=== PATIENT | male | born 1945 | race Caucasian/White ===

== ENCOUNTER → 2019-11-13 | Outpatient (CLI) | payer OTHER ==
[~2019-11-13] MED LIST: ASPIRIN325; ATORVASTATIN CA40 MG; BENICAR40 MG; CARVEDILOL25 MG; FISH OIL 1,2001 EAC4; GARLIC1000 MG; GLUCOPHAGE XR500 MG; VITAMIN C500 M1
== END ==
LOC: SJCVC 14:17
DX: I25.10 Atherosclerotic heart disease of native coronary artery without angina pectoris (principal); I65.23 Occlusion and stenosis of bilateral carotid arteries; I10 Essential (primary) hypertension; E78.00 Pure hypercholesterolemia, unspecified; E11.9 Type 2 diabetes mellitus without complications; I73.9 Peripheral vascular disease, unspecified; Z79.4 Long term (current) use of insulin; Z79.899 Other long term (current) drug therapy; Z87.891 Personal history of nicotine dependence

== ENCOUNTER → 2019-12-02 | Outpatient (CLI) | payer OTHER | LOC: SJCVCIMAG 07:38 | PROVIDERS: ATTEND Internal Medicine Cardiovascular Disease | DX: R94.31 Abnormal electrocardiogram [ECG] [EKG] (principal); I08.3 Combined rheumatic disorders of mitral, aortic and tricuspid valves; I25.10 Atherosclerotic heart disease of native coronary artery without angina pectoris; I10 Essential (primary) hypertension; E11.9 Type 2 diabetes mellitus without complications; E78.00 Pure hypercholesterolemia, unspecified; E78.5 Hyperlipidemia, unspecified; Z79.4 Long term (current) use of insulin; Z79.82 Long term (current) use of aspirin; Z79.899 Other long term (current) drug therapy ==

== ENCOUNTER → 2020-09-16 | Outpatient (CLI) | payer OTHER | LOC: SJCVC 11:40 | PROVIDERS: ATTEND Internal Medicine Cardiovascular Disease | DX: I25.10 Atherosclerotic heart disease of native coronary artery without angina pectoris (principal); I10 Essential (primary) hypertension; E78.00 Pure hypercholesterolemia, unspecified; I65.23 Occlusion and stenosis of bilateral carotid arteries; E11.9 Type 2 diabetes mellitus without complications; E78.5 Hyperlipidemia, unspecified; Z79.84 Long term (current) use of oral hypoglycemic drugs; Z79.82 Long term (current) use of aspirin; Z79.899 Other long term (current) drug therapy; Z87.891 Personal history of nicotine dependence; Z98.890 Other specified postprocedural states ==

== ENCOUNTER → 2021-05-20 | Outpatient (CLI) | payer OTHER ==
[2021-05-20 14:21] LABS: CREATININE 0.8 mg/dL (0.7-1.3)
== END ==
LOC: MRI 11:48
PROVIDERS: ATTEND Nurse Practitioner
DX: S32.038A Other fracture of third lumbar vertebra, initial encounter for closed fracture (principal); M54.5 Low back pain; M47.816 Spondylosis without myelopathy or radiculopathy, lumbar region; M48.061 Spinal stenosis, lumbar region without neurogenic claudication; X58.XXXA Exposure to other specified factors, initial encounter; Y93.89 Activity, other specified; Y92.89 Other specified places as the place of occurrence of the external cause; Y99.8 Other external cause status

== ENCOUNTER → 2021-06-01 | Outpatient (CLI) | payer OTHER | LOC: SJCVC 13:24 | PROVIDERS: ATTEND Nuclear Medicine Nuclear Cardiology | DX: M80.08XA Age-related osteoporosis with current pathological fracture, vertebra(e), initial encounter for fracture (principal); M54.50 Low back pain, unspecified; E78.00 Pure hypercholesterolemia, unspecified; I25.10 Atherosclerotic heart disease of native coronary artery without angina pectoris; I77.9 Disorder of arteries and arterioles, unspecified; E11.9 Type 2 diabetes mellitus without complications; I10 Essential (primary) hypertension; Z79.4 Long term (current) use of insulin; Z79.899 Other long term (current) drug therapy; Z87.891 Personal history of nicotine dependence; Z79.82 Long term (current) use of aspirin; X58.XXXA Exposure to other specified factors, initial encounter ==

== ENCOUNTER → 2021-06-15 | Outpatient (CLI) | payer OTHER ==
[~2021-06-15] VITALS: Ht 175.3 cm; Wt 77.1 kg
[~2021-06-15] MED LIST changes: +ADULT ASPIRIN R81 MG PO; +CARVEDILOL12.5 MG PO; +CITALOPRAM HBR40 MG PO; +FISH OIL 1,0001 EAC9 PO; +LIPITOR40 MG PO; +METFORMIN HCL500 M3 PO; +PRINIVIL20 M1 PO; +VITAMIN D325 MC5 PO
[2021-06-15 09:26] VITALS: BP 109/58
--- NOTE | 2021-06-15 09:58 | NUR ---
Pain Clinic Assessment: 1. History of Osteoarthritis: Right Lower Extremity History of Rheumatoid Arthritis: Not Applicable 2. Height: 5 ft. 9 in. 175.3 cm. Weight: 170.0 lb. oz. 77.112 kg. Patient's BMI: 25.1 3. Vital Signs: BP: 109/58 Pulse: 53 Resp: 14 Temp: 02 Sat: 97 ECG Mon: 4. Pain Intensity: 9 5. Fall Risk: Dizziness: N Needs help standing or walking: N Fallen in the last 3 months: N Fall risk comments: 6. Patient on Blood Thinner: None 7. History of Hypertension: Y 8. Opioid Therapy greater than 6 weeks: N Opiate Contract Signed: 9. Risk Assessment Tool Provided: LOW 10. Functional Assessment Tool: 43/ 11. Recreational Drug Use: Never Drug Type: Tobacco Use: Never Smoker Tobacco Type: Amount or Packs/day: How Many Years: Alcohol Use: No Frequency: Quant:
--- NOTE | 2021-06-22 09:03 | HPC ---
[place] [address] PAIN MANAGEMENT CONSULTATION Name: BRYAN HERNANDEZ Room #: [facility] Fernie#: [id number] Admission: 06/15/21 Attend Phys: Chip Ponce DO Discharge: Date of : 43 Report #: [id number] THIS REPORT FOR: cc: Cooper Mccurdy,Chip Alejandra DO ~ cc: Cooper Mccurdy MD DATE OF SERVICE: 06/15/2021 REFERRING PHYSICIAN: Dr. Cooper Mccurdy. CHIEF COMPLAINT: Low back pain, right lower extremity pain with paresthesias. HISTORY OF PRESENT ILLNESS: As you know, the patient is a very pleasant 75-year-old male, reporting acute onset of low back pain, right lower extremity pain with paresthesias. He states pain intensified 05/16/2021. He reports that he felt out of a truck on to his back in August 2019 and sustained a second fall in March 2021. He believes this March 2021 fall as what led to exacerbation of symptoms in April. The patient has trialed conservative treatment options including [id number]-knkszbe medications, rest, relaxation without much in the way of improvement in symptoms. He contacted his primary care physician who started the patient on medication management and gave stretching exercises and treatment from a conservative standpoint. When these symptoms did not improve, the patient was then sent on for MRI of the lumbar spine that MRI showed a compression fracture at L3 with central marrow edema and enhancement suggesting subacute fracture. He was advised to look towards treatment options. The patient did not seek treatment for this even after the imaging was completed. He was referred on to our clinic to discuss interventional therapies. The patient reports today his pain is continuous, steady and constant. He describes pain as shooting, aching and stabbing. Places current pain score 9/10. Worst pain has been as 10/10. The patient states pain is exacerbated with movement, improves with lying down. He has been referred to our service to discuss treatment options for low back pain and right lower extremity pain with paresthesias with a previous subacute compression fracture at L3. PAST MEDICAL HISTORY: 1. Diabetes mellitus type 2. 2. Hypertension. 3. COPD. 4. Coronary artery disease. 5. Degenerative joint disease. 6. Osteoarthritis. 7. Hyperlipidemia. 8. History of myocardial infarction. [address] [address] PAIN MANAGEMENT CONSULTATION Name: MARYBRYANRAJESH MEDEIROS Room #: REG [facility]EN[facility] Enciso#: [id number] Admission: 06/15/21 Attend Phys: Chip Ponce DO Discharge: Date of : 43 Report #: [id number] 9. Chronic fatigue. PAST SURGICAL HISTORY: 1. Eye surgery in 2019. 2. Knee surgery. 3. Coronary artery angioplasty with stent placement. 4. Tumor excision. SOCIAL HISTORY: The patient is retired, retired about 11 years ago, accompanied by his present in room today. He is not receiving workmen's compensation nor is he trying to obtain disability benefits. Not in litigation in regards to pain. He reports he is a nonsmoker. Denies IV or illicit drug use. Denies any chronic alcohol use. ALLERGIES: No known drug allergies. CURRENT MEDICATIONS: Metformin XR 500 mg once a day, atorvastatin 40 mg per day, carvedilol 25 mg once a day, olmesartan 40 mg per day, vitamin C 500 mg once a day, aspirin 325 mg per day, garlic 1000 mg per day, omega-3 fish oil 1 tab per day, cholecalciferol 25 mcg per day, aspirin 81 mg per day, atorvastatin 40 mg per day, lisinopril 20 mg per day, citalopram 40 mg per day. IMAGING: MRI lumbar spine obtained 05/20/2021 shows diffuse lumbar spondylosis, most significant at L2-L3, L3-L4, L4-L5 and L5-S1. There is a 50% subacute appearing compression fracture at L3 without significant retropulsion or anterior displacement. PQRS: The patient has known arthritic changes of the bilateral hips and knees. No rheumatoid arthritis. Placing current pain intensity at 9/10. He is a fall risk, has a fall in 03/2021. He is not on blood thinners, but history of hypertension. He is not on chronic opioids, has a low opioid addiction potential. Pain impact is 43/70. Moderate interference of daily activities secondary to pain. PHYSICAL EXAMINATION: VITAL SIGNS: Blood pressure 109/58, pulse 53, respiratory rate 14 and unlabored. The patient 97% on room air. Height 5 feet 9 inches tall, weight 170 pounds, BMI calculated 25.1. GENERAL: Well-developed, well-nourished, well-hydrated 75-year-old male, appearing stated age, pain is rated today 9/10. HEENT: Normocephalic, atraumatic. Pupils equal, round and responsive. He is wearing a mask in compliance with COVID-19 regulations. LUNGS: Appear clear. No appreciable wheezes, rhonchi or rales. CARDIOVASCULAR: Regular. No appreciable gallop, no rub. ABDOMEN: Soft, nontender. EXTREMITIES: Show no clubbing, no cyanosis, no edema. [address] [place] [address] PAIN MANAGEMENT CONSULTATION Name: BRYAN HERNANDEZ Room #: [facility]#: [id number] Admission: 06/15/21 Attend Phys: Chip Ponce DO Discharge: Date of : 43 Report #: [id number] MUSCULOSKELETAL: Lower extremity strength appears symmetrical 5/5. There is deconditioning noted bilaterally. Seated straight leg raising negative. Supine straight leg raising positive on the right. Keyonna's test is negative. Modified Gaenslen's positive for axial low back pain. Ankle clonus negative. Babinski is negative. ASSESSMENT: 1. Symptomatic lumbar radiculopathy. 2. Neural foraminal stenosis of lumbar spine. 3. Central canal stenosis of lumbar spine. 4. Displacement of lumbar intervertebral disk with radiculopathy. 5. Lumbosacral spondylosis with radiculopathy. 6. Lumbar degeneration. 7. Compression fracture of L3 vertebral body with central edema. No retropulsion. 8. Chronic intractable pain. PLAN: 1. The patient has been referred to our service after being evaluated by interventional radiology in regards to the L3 fracture, was determined at that visit that the patient is not a candidate for kyphoplasty to address the L3 compression. He was advised that his symptoms appear to be more radicular in origin. He was then subsequently referred on to our clinic to discuss treatment options. We have reviewed with the patient the findings of the MRI does show subacute compression fracture at L3. I am pleased to advise the patient there is no retropulsion of the fragments and there will be likely improvement in symptoms over a period of time from a fracture standpoint. He is experiencing symptoms radiating from the back down the leg consistent with a L3 radiculopathy. We discussed with him those treatment options. We discussed physical therapy, stretching exercises and core strengthening as a treatment approach. We discussed medication management with suggestions of treatment to include amitriptyline, nortriptyline, Cymbalta, Lyrica or gabapentin. We discussed lumbar epidural injections under fluoroscopic guidance as a treatment approach with the understanding that he does have a compression fracture and that steroid exposure could reduce his healing process and prolong the repair and improvement in his L3 back symptoms. We also discussed surgical options with the patient including kyphoplasty and surgical decompression and fusion. After reviewing risks and benefits of all proposed treatment options, the patient chose to begin with a lumbar epidural injection. 2. The patient was advised risks and benefits of a lumbar epidural injection. These risks include but are not necessarily limited to bleeding, bruising, infection, worsening pain, no relief of pain, also risk of temporary or permanent muscle weakness, temporary or permanent nerve damage, possible paralysis, post-dural puncture headache and . The patient states understood and wished to proceed. 3. No medication changes made at today's visit[place] [address] PAIN MANAGEMENT CONSULTATION Name: BRYAN HERNANDEZ Room #: REG [facility] Enciso#: [id number] Admission: 06/15/21 Attend Phys: Chip Ponce DO Discharge: Date of : 43 Report #: [id number] current medical therapy as prior prescribed. 4. We will see the patient back in followup visit in 1 month. At that time, review the efficacy of today's lumbar epidural injection in terms next in the series would be recommended. 5. We wish to thank Dr. Mccurdy for the referral of the patient to our clinic. We will keep you apprised of his response to treatment as we address lumbar radicular symptoms. Again, we wish to thank you for the opportunity to see the patient in consultation. PROCEDURE NOTE DESCRIPTION OF PROCEDURE: L4-L5 interlaminar epidural steroid injection under fluoroscopic guidance using a right paramedian approach. This is the first procedure of the first series that the patient is undergoing. After obtaining written consent, the patient was taken back to the fluoroscopy suite, placed in a prone position with pillow under the abdomen to decrease lumbar lordosis. The skin overlying the lumbosacral area was then prepped and draped in aseptic fashion. The L4-5 vertebral interspace was then identified by AP fluoroscopy. The skin and subcutaneous tissue overlying the target site of injection was anesthetized with 3 mL 1% lidocaine. A 20-gauge 3-1/2 inch Tuohy needle was then advanced under fluoroscopic guidance towards the epidural space using a right paramedian approach. The epidural space was identified using loss of resistance to air technique. After negative aspiration for heme or cerebrospinal fluid, a total of 1 mL of Omnipaque was injected. A lumbar epidurogram was confirmed using both AP and lateral fluoroscopy. After negative aspiration for heme or cerebrospinal fluid, 5 mL solution containing 2 mL 40 mg per mL 80 mg total triamcinolone along with 3 mL of lidocaine 1% was injected in increments. Contrast spread was noted in the posterior epidural space. The needle was then retracted approximately half way and needle tract flushed with 1 mL of 1% lidocaine. Needle was then removed. There were no apparent sensory or motor deficits in the lower extremity following the procedure. A sterile bandage was placed over the injection site. The heart rate, pulse, oximetry and blood pressure were continuously monitored after the procedure. There were apparent complications. The patient tolerated the procedure well and was carefully escorted to the recovery room in stable condition. There were no apparent complications. After meeting discharge criteria, the patient was then discharged home. <ELECTRONICALLY SIGNED> By: Chip Ponce DO 06/22/21 09 [id number] Chip Ponce DO /ion
== END | disposition home or self-care (01) ==
LOC: PAIN 06:47
PROVIDERS: ATTEND Anesthesiology Pain Medicine
DX: M51.16 Intervertebral disc disorders with radiculopathy, lumbar region (principal); M47.27 Other spondylosis with radiculopathy, lumbosacral region; M48.061 Spinal stenosis, lumbar region without neurogenic claudication; G89.29 Other chronic pain; I10 Essential (primary) hypertension; I25.10 Atherosclerotic heart disease of native coronary artery without angina pectoris; E11.9 Type 2 diabetes mellitus without complications; E78.5 Hyperlipidemia, unspecified; J44.9 Chronic obstructive pulmonary disease, unspecified; M19.90 Unspecified osteoarthritis, unspecified site; I25.2 Old myocardial infarction; Z98.890 Other specified postprocedural states; Z79.899 Other long term (current) drug therapy

== ENCOUNTER → 2021-06-16 | Outpatient (CLI) | payer OTHER | LOC: SJCVC 10:37 | PROVIDERS: ATTEND Internal Medicine Cardiovascular Disease | DX: R94.31 Abnormal electrocardiogram [ECG] [EKG] (principal); I25.10 Atherosclerotic heart disease of native coronary artery without angina pectoris; I10 Essential (primary) hypertension; M54.50 Low back pain, unspecified; I77.9 Disorder of arteries and arterioles, unspecified; E78.00 Pure hypercholesterolemia, unspecified; E11.9 Type 2 diabetes mellitus without complications; D04.9 Carcinoma in situ of skin, unspecified; R53.83 Other fatigue; E78.5 Hyperlipidemia, unspecified; I73.9 Peripheral vascular disease, unspecified; I65.29 Occlusion and stenosis of unspecified carotid artery; M48.00 Spinal stenosis, site unspecified; D49.2 Neoplasm of unspecified behavior of bone, soft tissue, and skin; M46.1 Sacroiliitis, not elsewhere classified; Z87.891 Personal history of nicotine dependence; Z79.82 Long term (current) use of aspirin; Z79.4 Long term (current) use of insulin; Z79.899 Other long term (current) drug therapy ==